=== PATIENT | male | born 2000 | race Hispanic/Latino ===

== ENCOUNTER 2024-03-13 11:54 | Outpatient (CLI) | payer OTHER ==
[2024-03-13] MEDS ORDERED: Iopamidol 370 76% 100 ML VIAL ONE (11:58)
== END 2024-03-13 11:55 | disposition home or self-care (01) ==
LOC: BICCT 11:54
PROVIDERS: ATTEND Specialist
DX: J95.5 Postprocedural subglottic stenosis (principal); Z93.0 Tracheostomy status
CPT/HCPCS: 70491; Q9967